=== PATIENT | female | born 1945 | race Two or more races ===

== ENCOUNTER 2022-10-25 23:33 | Emergency (ER) | payer MEDICARE ==
[~2022-10-25] VITALS: Ht 152.4 cm; Wt 59.9 kg
[2022-10-26] MEDS ORDERED: HYDROCODONE/ACETAMINOPHEN 10/325 MG TAB PO ONE (00:30)
[2022-10-26] MEDS ORDERED: ACET-2079 PO (01:19)
[2022-10-26 03:50] VITALS: BP 133/78
== END 2022-10-26 04:01 | disposition home or self-care (01) ==
LOC: EDH 23:33
DX: G89.29 Other chronic pain (principal); M25.559 Pain in unspecified hip; E11.22 Type 2 diabetes mellitus with diabetic chronic kidney disease; N18.9 Chronic kidney disease, unspecified